=== PATIENT | female | born 1940 | race Asian ===

== ENCOUNTER 2018-04-19 04:48 | Emergency (ER) | payer OTHER ==
[~2018-04-19] VITALS: Ht 157.5 cm; Wt 63.5 kg
[2018-04-19 05:05] VITALS: BP_SYST 152
[2018-04-19] MEDS ORDERED: ONDANSETRON HCL 4 MG/2 ML VIAL IVP ONE (05:30)
[2018-04-19] MEDS ORDERED: NACL 0.9% 1,000 ML IV ONE (05:30)
[2018-04-19] MEDS ORDERED: MECLIZINE HCL 25 MG TABLET (ANITVERT) PO ONE (05:45)
[2018-04-19 07:02] VITALS: BP_SYST 152
== END 2018-04-19 07:02 | disposition home or self-care (01) ==
LOC: SED 04:48
DX: H81.10 Benign paroxysmal vertigo, unspecified ear (principal); J44.9 Chronic obstructive pulmonary disease, unspecified; I10 Essential (primary) hypertension; Z88.6 Allergy status to analgesic agent; Z88.1 Allergy status to other antibiotic agents; Z88.8 Allergy status to other drugs, medicaments and biological substances
CPT/HCPCS: 70450; 96361; 96374; 99284; J2405; J8597